=== PATIENT | male | born 1990 | race Caucasian/White ===

== ENCOUNTER 2018-07-08 09:50 | Emergency (ER) | payer MEDICAID ==
[~2018-07-08] VITALS: Ht 177.8 cm; Wt 120.7 kg
[2018-07-08] MEDS ORDERED: SODIUM CHLORIDE FLUSH 10ML SYR IVF ONE (11:00)
--- NOTE | 2018-07-08 11:15 | NUR ---
THIS IS A 27 YO MALE WHO PRESENTS TO THE ER C/O LLQ AND LEFT GROIN PAIN SINCE MONDAY. PT TENDER TO PALP. PT DENIES N/V/D. PT AO X 4. SKIN PWD .RESP EVEN AND EQAUL. NAD NOTED. PT AWARE THAT WE ARE WAITING FOR ERMD EVAL. PT ON CONT BP AND O2 MONITORS. CALL LIGHT WITHIN REACH. WILL CONT TO MONITOR PT.
[2018-07-08 11:29] LABS: BASOPHILS # (AUTO) 0.06 x10^3/uL (0-0.1); BASOPHILS % (AUTO) 1 % (0-1); EOSINOPHILS # (AUTO) 0.12 x10^3/uL (0-0.4); EOSINOPHILS % (AUTO) 1 % (1-7); LYMPHOCYTES # (AUTO) 2.86 x10^3/uL (1-3.4); LYMPHOCYTES % (AUTO) 30 % (22-44); MD NO; MEAN CORPUSCULAR HEMOGLOBIN 24.1 pg (27.5-34.5); MEAN CORPUSCULAR HGB CONC 32.4 g/dL (33.2-36.2); MEAN CORPUSCULAR VOLUME 74.6 fL (81-97); MEAN PLATELET VOLUME 9.4 fL (7.4-10.4); MONOCYTES # (AUTO) 0.57 x10^3/uL (0.2-0.8); MONOCYTES % (AUTO) 6 % (2-9); NEUTROPHILS # (AUTO) 6.02 x10^3/uL (1.8-6.8); NEUTROPHILS % (AUTO) 63 % (42-75); PLATELET COUNT 312 x10^3/uL (130-400); RED BLOOD COUNT 7.04 x10^6/uL (4.38-5.82); RED CELL DISTRIBUTION WIDTH 15.1 % (9.4-14.8)
[2018-07-08 11:37] LABS: ANION GAP 6 mmol/L (5-15); CALCIUM 9.3 mg/dL (8.5-10.1); CHLORIDE 108 mmol/L (98-107)
[2018-07-08 11:40] LABS: ALANINE AMINOTRANSFERASE 98 U/L (12-78); ALKALINE PHOSPHATASE 104 U/L (45-117); BILIRUBIN,TOTAL 0.7 mg/dL (0.2-1.0); CREATININE 0.96 mg/dL (0.7-1.3); TOTAL PROTEIN 8.5 g/dL (6.4-8.2)
[2018-07-08] MEDS ORDERED: ONDANSETRON 2MG/ML, 2ML IVPush ONE ×2 (12:00→13:00)
--- NOTE | 2018-07-08 12:30 | NUR ---
GERALDINE ARDON AT BEDSIDE FOR EVAL/EXPALNATION OF RESULTS AND FURTHER POC. PT VERBALIZES UNDERSTANDING OF POC AND RISKS OF REPEATING CT SCAN. PT REQUESTS REPEAT. PT AO X 4. SKIN PWD. RESP EVEN AND EQAUL. CALL LIGHT WITHIN REACH. WILL CONT TO MONITOR PT.
[2018-07-08 12:39] LABS: MICROSCOPIC NOT IND
[2018-07-08 12:40] LABS: CULTURE INDICATED? NO
[2018-07-08] MEDS ORDERED: SODIUM CHLORIDE 0.9% 1,000ML IVBOLUS ONE (13:00)
[2018-07-08] MEDS ORDERED: MORPHINE SULFATE 4 MG/ML, 1ML IVPush PRN (13:00)
[2018-07-08] MEDS ORDERED: ONDANSETRON 2MG/ML, 2ML ONE (13:07)
[2018-07-08] MEDS ORDERED: MORPHINE SULFATE 4 MG/ML, 1ML ONE (13:07)
--- NOTE | 2018-07-08 13:15 | NUR ---
PT C/O 10/31 ABD PAIN. PT MEDICTED ORDERED FOR PAIN/NAUSEA. AFTER BEING MEDICATED, PT STATED "MY PAIN IS COMPLETELY GONE!'". PT AO X 4. SKIN PWD. RESP EVEN AND EQAUL. PT AWARE THAT WE ARE WAITING FOR IMAGING RESULTS. CALL LIGHT WITHIN REACH. WILL CONT TO JOAQUIN PT.
[2018-07-08] MEDS ORDERED: OMNIPAQUE 350 MG/ML, 100ML BOTTLE ONE (13:59)
--- NOTE | 2018-07-08 14:03 | NUR ---
PT CURRENTLY RESTING ON [facility]. NAD NOTED. SKIN PWD. RESP EVEN AND EQAUL. PT CONT TO DENY PAIN. PT AWARE THAT WE ARE WAITING FOR CT SCAN RESULTS. PT DENIES OTHER NEEDS AT THIS TIME. CALL LIGHT WITHIN REACH. WILL CONT TO MONITOR PT.
[2018-07-08 15:22] VITALS: BP 135/84
== END 2018-07-08 15:26 | disposition home or self-care (01) ==
LOC: ED 11:16
DX: K59.00 Constipation, unspecified (principal); R10.32 Left lower quadrant pain; J15.9 Unspecified bacterial pneumonia; Z90.49 Acquired absence of other specified parts of digestive tract
CPT/HCPCS: 36415; 71046; 74177; 80053; 81003; 85025; 96374; 96375; 99284; J2405; J7030; Q9967

== ENCOUNTER 2018-08-28 13:09 | Emergency (ER) | payer MEDICAID ==
[~2018-08-28] VITALS: Ht 177.8 cm; Wt 123.5 kg
[2018-08-28 13:18] VITALS: BP 130/85
[2018-08-28 13:58] LABS: BASOPHILS # (AUTO) 0.03 x10^3/uL (0-0.1); BASOPHILS % (AUTO) 1 % (0-1); EOSINOPHILS # (AUTO) 0.22 x10^3/uL (0-0.4); EOSINOPHILS % (AUTO) 3 % (1-7); LYMPHOCYTES # (AUTO) 2.82 x10^3/uL (1-3.4); LYMPHOCYTES % (AUTO) 41 % (22-44); MD NO; MEAN CORPUSCULAR HEMOGLOBIN 25.1 pg (27.5-34.5); MEAN CORPUSCULAR HGB CONC 33.4 g/dL (33.2-36.2); MEAN CORPUSCULAR VOLUME 75.3 fL (81-97); MONOCYTES # (AUTO) 0.33 x10^3/uL (0.2-0.8); MONOCYTES % (AUTO) 5 % (2-9); NEUTROPHILS # (AUTO) 3.49 x10^3/uL (1.8-6.8); NEUTROPHILS % (AUTO) 51 % (42-75); PLATELET COUNT 264 x10^3/uL (130-400); RED BLOOD COUNT 6.27 x10^6/uL (4.38-5.82); RED CELL DISTRIBUTION WIDTH 16.3 % (9.4-14.8)
[2018-08-28 14:17] LABS: ALANINE AMINOTRANSFERASE 63 U/L (12-78); ALBUMIN 3.7 g/dL (3.4-5.0); ALKALINE PHOSPHATASE 82 U/L (45-117); ANION GAP 9 mmol/L (5-15); BILIRUBIN,TOTAL 0.5 mg/dL (0.2-1.0); CALCIUM 9.1 mg/dL (8.5-10.1); CHLORIDE 107 mmol/L (98-107); CREATININE 1.03 mg/dL (0.7-1.3); TOTAL PROTEIN 7.7 g/dL (6.4-8.2)
== END 2018-08-28 15:15 | disposition home or self-care (01) ==
LOC: ED 15:09
DX: J18.1 Lobar pneumonia, unspecified organism (principal)
CPT/HCPCS: 36415; 71046; 80053; 84145; 85025; 93005; 99284